=== PATIENT | female | born 1985 | race African-American/Black ===

== ENCOUNTER 2020-03-18 14:20 | Emergency (ER) | payer OTHER ==
[~2020-03-18] VITALS: Ht 154.9 cm; Wt 49.9 kg
[~2020-03-18 14:20] MED LIST: DEPAKOTE250 MG; MEDROLDOSEPACK PO; MOBIC15 MG PO; NAPROSYN500 MG PO; REMERON15 M1; ULTRAM 50MG TAB50 MG PO; VENTOLIN17 GM
[2020-03-18 15:13] LABS: URINE BILIRUBIN NEGATIVE (Negative); URINE BLOOD NEGATIVE (Negative); URINE CLARITY CLEAR; URINE COLOR YELLOW; URINE GLUCOSE-RANDOM* NEGATIVE (Negative); URINE KETONES NEGATIVE (Negative); URINE LEUKOCYTES-REFLEX NEGATIVE (Negative); URINE NITRITE-REFLEX NEGATIVE (Negative); URINE PROTEIN (DIPSTICK) NEGATIVE (Negative); URINE UROBILINOGEN 0.2 E.U./dl (0.2-1.0)
[2020-03-18 15:37] LABS: HEMATOCRIT 35.5 % (37.0-47.0); MCHC 33.9 g/dL (28.0-37.0); MCV 91.6 fL (80.0-100.0); RBC 3.88 mil/uL (4.20-5.00); RDW 12.3 % (10.5-14.5); WBC 7.3 thou/uL (4.0-11.0)
[2020-03-18 15:51] LABS: CALCIUM 8.6 mg/dL (8.5-10.1); CREATININE 0.8 mg/dL (0.6-1.0); POTASSIUM 3.6 mmol/L (3.5-5.1)
[2020-03-18 15:57] LABS: ALBUMIN 4.3 g/dL (3.4-5.0); TOTAL BILIRUBIN 0.3 mg/dL (0.2-1.0); TOTAL PROTEIN 8.1 g/dL (6.4-8.2)
[2020-03-18 16:04] LABS: AMP/METHAMP Negative (Negative); BARBITURATES Negative (Negative); BENZODIAZEPINES Negative (Negative); COCAINE Negative (Negative); METHADONE Negative (Negative); OPIATES Negative (Negative); PCP Negative (Negative)
[2020-03-18] MEDS ORDERED: PHENERGAN 25 MG25 M1 PO (16:38)
[2020-03-18 16:59] VITALS: BP 110/68
== END 2020-03-18 17:00 | disposition home or self-care (01) ==
LOC: ER 14:20
PROVIDERS: Physician Assistant
DX: R10.13 Epigastric pain (principal); R11.2 Nausea with vomiting, unspecified; F12.90 Cannabis use, unspecified, uncomplicated; J45.909 Unspecified asthma, uncomplicated; Z79.899 Other long term (current) drug therapy; Z90.49 Acquired absence of other specified parts of digestive tract; Z98.51 Tubal ligation status; Z88.0 Allergy status to penicillin

== ENCOUNTER 2021-05-15 14:45 | Emergency (ER) | payer OTHER ==
[~2021-05-15] VITALS: Ht 157.5 cm; Wt 54.4 kg
[~2021-05-15 14:45] MED LIST changes: +PHENERGAN 25 MG25 M1 PO
[2021-05-15 16:28] LABS: ABSOLUTE NEUTROPHILS 5.4 thou/uL (1.4-8.2); BASOPHILS 0.5 % (0.0-2.0); EOSINOPHILS 0.4 % (0.0-3.0); HEMATOCRIT 35.7 % (37.0-47.0); HEMOGLOBIN 11.8 gm/dL (12.0-15.0); LYMPHOCYTES 18.7 % (24.0-44.0); MONOCYTES 6.5 % (1.0-8.0); PLATELET COUNT 259 thou/uL (150-400); POLYS 73.9 % (36.0-66.0); RBC 3.93 mil/uL (4.20-5.00); WBC 7.3 thou/uL (4.0-11.0)
[2021-05-15 16:34] LABS: ANION GAP 7 mmol/L (7-16); BUN 9 mg/dL (7-18); CALCIUM 8.9 mg/dL (8.5-10.1); CHLORIDE 104 mmol/L (98-107); CO2 27 mmol/L (21-32); CREATININE 0.7 mg/dL (0.6-1.0); GLUCOSE 82 mg/dL (74-106); SODIUM 138 mmol/L (136-145)
[2021-05-15 16:40] LABS: ALBUMIN 4.2 g/dL (3.4-5.0); DIRECT BILIRUBIN < 0.1 mg/dL (<0.1-0.2); SGOT 41 U/L (15-37); SGPT 23 U/L (14-59); TOTAL PROTEIN 8.1 g/dL (6.4-8.2)
[2021-05-15 16:41] LABS: POTASSIUM 4.9 mmol/L (3.5-5.1)
[2021-05-15 16:42] LABS: TOTAL BILIRUBIN 0.5 mg/dL (0.2-1.0)
[2021-05-15 17:24] LABS: URINE BILIRUBIN NEGATIVE (Negative); URINE BLOOD NEGATIVE (Negative); URINE CLARITY CLEAR; URINE COLOR YELLOW; URINE GLUCOSE-RANDOM* NEGATIVE (Negative); URINE KETONES NEGATIVE (Negative); URINE LEUKOCYTES-REFLEX NEGATIVE (Negative); URINE NITRITE-REFLEX NEGATIVE (Negative); URINE PROTEIN (DIPSTICK) NEGATIVE (Negative); URINE SPECIFIC GRAVITY 1.015 (1.005-1.035); URINE UROBILINOGEN 0.2 E.U./dl (0.2-1.0)
[2021-05-15] MEDS ORDERED: ZOFRAN ODT4 MG PO (19:00)
[2021-05-15 19:11] VITALS: BP 115/74
== END 2021-05-15 21:11 | disposition home or self-care (01) ==
LOC: ER 14:45
PROVIDERS: Emergency Medicine
DX: R11.2 Nausea with vomiting, unspecified (principal); R10.12 Left upper quadrant pain; J45.909 Unspecified asthma, uncomplicated; Z90.49 Acquired absence of other specified parts of digestive tract; Z88.8 Allergy status to other drugs, medicaments and biological substances